=== PATIENT | female | born 1970 | race Caucasian/White ===

== ENCOUNTER 2020-11-16 10:29 | Observation (INO) | payer BC, SELFPAY ==
[2020-11-16] VITALS (9 sets, daily range): BP systolic 102–125; BP diastolic 59–75; PULSE 69–91; RESP 17–18; TEMP 36.7–37.1; O2SAT 96–100; BMI 36.0
--- NOTE | 2020-11-16 10:54 | ED_ITS ---
HPI - Headache General Chief Complaint: General Medical Stated Complaint: FLU [place]S Time Seen by Provider: 11/16/20 10:53 Source: patient Mode of arrival: ambulatory Limitations: no limitations History of Present Illness HPI Narrative: 50 yo female hx of hypothyroidism here with headache for almost 1 week gradual onset during rest - has worsened progressively she also notes diffuse body pain, fevers up to 101.3, just tested negative for COVID on 11/13 she was also started on fioricet with no relief, has been on macrobid for UTI unsure if headaches started after, also noted she syncopized on Friday due to weakness and headache MD elicited complaint: headache Onset (ago): day(s) (6) Onset description: gradually Location: diffuse Severity: severe Quality & Timing: aching and throbbing Exacerbating factors: light and noise Relieving factors: nothing Context: occurred at rest Associated symptoms: fever, nausea, photophobia and malaise Treatments prior to arrival: acetaminophen and prescription analgesic Related Data Allergies Allergy/AdvReac Type Severity Reaction Status Date / Time No Known Allergies Allergy Verified 11/16/20 11:06 Review of Systems Review of Systems: Constitutional : pos Fever, pos Chills, pos Fatigue ENT/Mouth : No sore throat, No Rhinorrhea Eyes: pos Eye Pain, No Swelling, No Redness Cardiovascular : No Chest Pain, No SOB, No Dyspnea on Exertion Respiratory : No Cough, No Sputum Gastrointestinal : pos Nausea, No Vomiting, No Diarrhea, No abdominal Pain Genitourinary : No Dysuria, No Urinary Frequency, No Hematuria, Musculoskeletal : No joint pain, pos Myalgias, No Joint Swelling Skin : No Skin Lesions, No rash Neuro : pos Weakness, No Numbness, No Dizziness, positive Headache Psych : No Anxiety/Panic, No Depression Heme/Lymph: No Bruising, No Bleeding,No Lymphadenopathy Endocrine : No Polyuria, No Polydipsia All other systems reviewed and are negative [facility] Past Medical History Attestation statement: The following information was validated with the patient. Medical History Hypothyroid Social History Social History (Updated 11/16/20 @ 11:25 by Lesia Monroy DO) Alcohol intake: never Smoking Status: Never smoker Use of substances other than those prescribed or required for medical reasons: No Advance Directives: No Advance Directives Information Provided: No Physical Exam Vital Signs: Vital Signs: Last Vital Signs Temp 98.1 F 11/16/20 15:58 Pulse 76 11/16/20 15:58 Resp 18 11/16/20 15:58 BP 109/59 L 11/16/20 15:58 Pulse Ox 99 11/16/20 15:58 Body Mass Index 36.0 Appearance: Alert. Oriented X3. No acute distress. Eyes: Pupils equal, round and reactive to light. ENT: Pharynx mild dry MMM, photophobia Neck: Normal inspection. Neck supple. no meningal signs, neg kernig's neg brudzinkski CVS: Normal heart rate and rhythm. Pulses normal. Respiratory: No respiratory distress. Breath sounds normal. Abdomen: Soft and nontender. Skin: Skin warm and dry. Normal skin color. Normal skin turgor. Extremities: No lower extremity edema. No calf ttp Neuro: Oriented X 3. No motor deficit. No sensory deficit. Course Course Course Narrative: headache resolved, of note was also taken off effexor, she is not toxic, she has no meningeal signs - was dizzy after medications, afebrile here, unlikely to be SAH given her history, I doubt bacterial meningitis, did discuss LP but she is unsure patient now c/o nausea and dizzines after medications, again discussed LP for possible viral meningitis though unlikely given 1 week of symptoms, at this time given her uncertainty and the fact she does not want LP will obtain CTA to r/o dissection as cause of her severe headache, signed out to Dr. Samayoa pending workup MDM - Headache MDM Narrative Medical decision making narrative: 50 yo female with hypothyroidism comes in c/o body aches, severe headache and overall feeling sick she did have syncopal episode as well but no CP/SOB at this time will need labs, CT head for mass/hemorrhage, IVF, IV morphine, repeat COVID swab, dispo per results and findings. Lab Data Result diagrams: 11/16/20 12:09 11/16/20 12:10 Labs: Lab Results 11/16/20 11/16/20 11/16/20 Range/Units 12:09 12:09 12:09 WBC 3.6 L (4.8-10.8) X10*3/uL RBC 4.76 (4.20-5.50) X10*6/uL Hgb 14.8 (12.0-16.0) g/dl Hct 44.5 (37-47) % MCV 93.5 (80-98) fL MCH 31.1 (27.0-33.0) pg MCHC 33.3 (31.0-35.0) g/dl RDW 12.1 (11.0-16.0) % Plt Count 189 (160-400) X10*3/uL MPV 10.1 (9.4-12.3) fL Immature Gran % (Auto) 0.6 H (0.0-0.4) % Neut % (Auto) 44.6 L (45-73) % Lymph % (Auto) 39.6 (20-40) % Woodson % (Auto) 11.0 (2-11) % Eos % (Auto) 2.5 (0-4) % Baso % (Auto) 1.7 (0-2) % Lymph # (Auto) 1.4 (1.2-4.9) X10*3/uL Woodson # (Auto) 0.4 (0.1-1.2) X10*3/uL Eos # (Auto) 0.1 (0.0-0.4) X10*3/uL Baso # (Auto) 0.1 (0.0-0.2) X10*3/uL Abs Immat Gran (auto) 0.02 (0.00-0.03) X10*3/uL Absolute Neuts (auto) 1.6 L (2.0-8.3) X10*3/uL Absolute Nucleated RBC 0.000 (0.0-0.012) X10*3/uL Nucleated RBC % (auto) 0.0 (0.0-0.2) /100WBC PT (10.8-13.0) SEC INR (0.9-1.1) APTT (24.1-38.0) SEC Sodium (135-145) mmol/L Potassium (3.3-5.1) mmol/l Chloride (96-108) mmol/L Carbon Dioxide (22-29) mmol/L Anion Gap (12-20) BUN (9-16) mg/dL Creatinine (0.5-1.4) mg/dL Estim Creat Clear Calc Estimated GFR Random Glucose (60-115) mg/dL Lactic Acid 0.8 (0.5-2.0) mmol/L Calcium (8.4-10.2) mg/dL Magnesium 2.2 (1.6-2.6) mg/dL Ferritin 220 (10-250) ng/mL Total Bilirubin 0.8 (0.0-1.0) mg/dL Direct Bilirubin 0.3 (0.0-0.5) mg/dL AST 12 (5-31) U/L ALT 11 (0-31) U/L Alkaline Phosphatase 53 (39-117) U/L Lactate Dehydrogenase (122-220) U/L Total Creatine Kinase 51 (26-140) U/L Troponin I High Sens (<3.5-17.0) ng/L Total Protein 6.3 L (6.5-8.0) g/dL Albumin 4.0 (3.5-5.0) g/dL Lipase 22 (8-78) U/L Coronavirus (PCR) (Negative) Influenza Type A (PCR) (Negative) Influenza Type B (PCR) (Negative) RSV RNA Qual (PCR) (Negative) 11/16/20 11/16/20 11/16/20 Range/Units 12:09 12:09 12:09 WBC (4.8-10.8) X10*3/uL RBC (4.20-5.50) X10*6/uL Hgb (12.0-16.0) g/dl Hct (37-47) % MCV (80-98) fL MCH (27.0-33.0) pg MCHC (31.0-35.0) g/dl RDW (11.0-16.0) % Plt Count (160-400) X10*3/uL MPV (9.4-12.3) fL Immature Gran % (Auto) (0.0-0.4) % Neut % (Auto) (45-73) % Lymph % (Auto) (20-40) % Woodson % (Auto) (2-11) % Eos % (Auto) (0-4) % Baso % (Auto) (0-2) % Lymph # (Auto) (1.2-4.9) X10*3/uL [place] # (Auto) (0.1-1.2) X10*3/uL Eos # (Auto) (0.0-0.4) X10*3/uL Baso # (Auto) (0.0-0.2) X10*3/uL Abs Immat Gran (auto) (0.00-0.03) X10*3/uL Absolute Neuts (auto) (2.0-8.3) X10*3/uL Absolute Nucleated RBC (0.0-0.012) X10*3/uL Nucleated RBC % (auto) (0.0-0.2) /100WBC PT 12.9 (10.8-13.0) SEC INR 1.1 (0.9-1.1) APTT 35.1 (24.1-38.0) SEC Sodium (135-145) mmol/L Potassium (3.3-5.1) mmol/l Chloride (96-108) mmol/L Carbon Dioxide (22-29) mmol/L Anion Gap (12-20) BUN (9-16) mg/dL Creatinine (0.5-1.4) mg/dL Estim Creat Clear Calc Estimated GFR Random Glucose (60-115) mg/dL Lactic Acid (0.5-2.0) mmol/L Calcium (8.4-10.2) mg/dL Magnesium (1.6-2.6) mg/dL Ferritin (10-250) ng/mL Total Bilirubin (0.0-1.0) mg/dL Direct Bilirubin (0.0-0.5) mg/dL AST (5-31) U/L ALT (0-31) U/L Alkaline Phosphatase (39-117) U/L Lactate Dehydrogenase (122-220) U/L Total Creatine Kinase (26-140) U/L Troponin I High Sens < 3.5 (<3.5-17.0) ng/L Total Protein (6.5-8.0) g/dL Albumin (3.5-5.0) g/dL Lipase (8-78) U/L Coronavirus (PCR) NEGATIVE (Negative) Influenza Type A (PCR) NEGATIVE (Negative) Influenza Type B (PCR) NEGATIVE (Negative) RSV RNA Qual (PCR) NEGATIVE (Negative) 11/16/20 Range/Units 12:10 WBC (4.8-10.8) X10*3/uL RBC (4.20-5.50) X10*6/uL Hgb (12.0-16.0) g/dl Hct (37-47) % MCV (80-98) fL MCH (27.0-33.0) pg MCHC (31.0-35.0) g/dl RDW (11.0-16.0) % Plt Count (160-400) X10*3/uL MPV (9.4-12.3) fL Immature Gran % (Auto) (0.0-0.4) % Neut % (Auto) (45-73) % Lymph % (Auto) (20-40) % Woodson % (Auto) (2-11) % Eos % (Auto) (0-4) % Baso % (Auto) (0-2) % Lymph # (Auto) (1.2-4.9) X10*3/uL [place]son # (Auto) (0.1-1.2) X10*3/uL Eos # (Auto) (0.0-0.4) X10*3/uL Baso # (Auto) (0.0-0.2) X10*3/uL Abs Immat Gran (auto) (0.00-0.03) X10*3/uL Absolute Neuts (auto) (2.0-8.3) X10*3/uL Absolute Nucleated RBC (0.0-0.012) X10*3/uL Nucleated RBC % (auto) (0.0-0.2) /100WBC PT (10.8-13.0) SEC INR (0.9-1.1) APTT (24.1-38.0) SEC Sodium 139 (135-145) mmol/L Potassium 4.1 (3.3-5.1) mmol/l Chloride 105 (96-108) mmol/L Carbon Dioxide 25 (22-29) mmol/L Anion Gap 13 (12-20) BUN 24 H (9-16) mg/dL Creatinine 0.93 (0.5-1.4) mg/dL Estim Creat Clear Calc 81.9 Estimated GFR > 60 Random Glucose 85 (60-115) mg/dL Lactic Acid (0.5-2.0) mmol/L Calcium 9.0 (8.4-10.2) mg/dL Magnesium (1.6-2.6) mg/dL Ferritin (10-250) ng/mL Total Bilirubin (0.0-1.0) mg/dL Direct Bilirubin (0.0-0.5) mg/dL AST (5-31) U/L ALT (0-31) U/L Alkaline Phosphatase (39-117) U/L Lactate Dehydrogenase 142 (122-220) U/L Total Creatine Kinase (26-140) U/L Troponin I High Sens (<3.5-17.0) ng/L Total Protein (6.5-8.0) g/dL Albumin (3.5-5.0) g/dL Lipase (8-78) U/L Coronavirus (PCR) (Negative) Influenza Type A (PCR) (Negative) Influenza Type B (PCR) (Negative) RSV RNA Qual (PCR) (Negative) ECG Data Attestation: I personally reviewed and interpreted this ECG as follows: ECG interpretation date: 11/16/20 ECG interpretation time: 11:52 Interpretation: Rate: 71 Rhythm: NSR Mcdonald: normal Normal P waves. Normal HARINDER. Normal QRS complex. ST T wave : normal no KIKA qTC: normal prior studies: no acute ischemia The study has been interpreted contemporaneously by me. . Discharge Plan Discharge Clinical Impression: Headache Qualifiers: Headache type: unspecified Headache chronicity pattern: acute headache Intractability: not intractable Qualified Code(s): R51.9 - Headache, unspecified Nausea & vomiting Qualifiers: Vomiting type: unspecified Vomiting Intractability: non-intractable Qualified Code(s): R11.2 - Nausea with vomiting, unspecified
--- NOTE | 2020-11-16 11:07 | ECG_ITS ---
Test Reason : SOB Blood Pressure : / mmHG Vent. Rate : 071 BPM Atrial Rate : 071 BPM P-R Int : 144 ms QRS Dur : 076 ms QT Int : 376 ms P-R-T Axes : 022 024 013 degrees QTc Int : 408 ms Normal sinus rhythm Normal ECG No previous ECGs available Referred By: Lesia Monroy Electronically Signed By:Renzo Santacruz
--- NOTE | 2020-11-16 11:07 | CT_ITS ---
EXAMINATION: CT HEAD WITHOUT CONTRAST CLINICAL INFORMATION: Severe headache COMPARISON: None. TECHNIQUE: Contiguous axial imaging was performed from the skull base to vertex without intravenous contrast. This CT examination was performed using dose optimization techniques as appropriate, variously including the following: * Automated exposure control * Adjustment of mA and/or kV according to patient size (this includes techniques or standardized protocols for targeted exams where dose is matched to indication/reason for exam; i.e. extremities or head) Use of iterative reconstruction technique DLP: 687 mGy-cm. FINDINGS: There is no evidence of acute intracranial hemorrhage or territorial infarction. No abnormal mass effect or midline shift is seen. Guerra to white matter differentiation is well preserved. No extra-axial fluid collections are identified. No hydrocephalus. No significant volume loss. There is no abnormal attenuation within the brain parenchyma. The osseous structures and soft tissues are normal. Small mucus retention cyst in the right ethmoid air cell posteriorly. The mastoid air cells and visualized portions of the paranasal sinuses are otherwise well aerated. CT/CT head/brain wo con IMPRESSION: No acute intracranial pathology.
--- NOTE | 2020-11-16 11:08 | XR_ITS ---
EXAMINATION: XR CHEST CLINICAL INFORMATION: Weakness COMPARISON: None TECHNIQUE: Frontal view of the chest was obtained. FINDINGS: The lungs are well expanded. There is no focal consolidation, edema, or effusion. No pneumothorax. The cardiomediastinal silhouette is within normal limits. No acute osseous abnormality. XR/XR chest 1V IMPRESSION: No acute pulmonary findings.
--- NOTE | 2020-11-16 12:15 | PC.NURSE ---
inserted, labs drawn, covid swab obtained, pt aware she needs to provide urine, will continue to monitor
[2020-11-16] MEDS: 0.9 % Sodium Chloride 1,000 ML 999 ML IVCONT ×3 (12:31→16:25)
[2020-11-16] MEDS: Morphine Sulfate 4 MG/ML CARTRIDGE IVPUSH (12:31)
[2020-11-16] MEDS: diphenhydrAMINE HCL 50 MG/ML VIAL 25 MG IVPUSH (12:31)
[2020-11-16 12:32] LABS: MANUAL DIFF FLAG NO
[2020-11-16 12:37] LABS: Basophils Absolute Auto 0.1 X10*3/uL (0.0-0.2); Basophils Percent Auto 1.7 % (0-2); Eosinophils Absolute Auto 0.1 X10*3/uL (0.0-0.4); Eosinophils Percent Auto 2.5 % (0-4); Hematocrit 44.5 % (37-47); Hemoglobin 14.8 g/dl (12.0-16.0); Imm Gran Abs Auto 0.02 X10*3/uL (0.00-0.03); Imm Gran Pct Auto 0.6 % (0.0-0.4); Lymphocytes Absolute Auto 1.4 X10*3/uL (1.2-4.9); Lymphocytes Percent Auto 39.6 % (20-40); Mean Corpuscular HGB Conc 33.3 g/dl (31.0-35.0); Mean Corpuscular Hemoglobin 31.1 pg (27.0-33.0); Mean Corpuscular Volume 93.5 fL (80-98); Mean Platelet Volume 10.1 fL (9.4-12.3); Monocytes Absolute Auto 0.4 X10*3/uL (0.1-1.2); Neutrophils Absolute Auto 1.6 X10*3/uL (2.0-8.3); Neutrophils Percent Auto 44.6 % (45-73); Platelet Count 189 X10*3/uL (160-400); Red Blood Count 4.76 X10*6/uL (4.20-5.50); Red Cell Distribution Width 12.1 % (11.0-16.0); White Blood Count 3.6 X10*3/uL (4.8-10.8)
[2020-11-16 12:43] LABS: INTERNATIONAL NORM RATIO 1.1 (0.9-1.1); Prothrombin Time 12.9 SEC (10.8-13.0)
[2020-11-16 12:45] LABS: Partial Thromboplastin Time 35.1 SEC (24.1-38.0)
--- NOTE | 2020-11-16 12:46 | PC.NURSE ---
patient medicated per order
[2020-11-16 12:58] LABS: Lactic Acid 0.8 mmol/L (0.5-2.0)
[2020-11-16 13:02] LABS: Influenza A PCR NEGATIVE (Negative); Influenza B PCR NEGATIVE (Negative); Resp Syncy Virus RNA Qual PCR NEGATIVE (Negative); SARS COV2 PCR INHOUSE NEGATIVE (Negative)
[2020-11-16 13:04] LABS: Anion Gap 13 (12-20); Blood Urea Nitrogen 24 mg/dL (9-16); Carbon Dioxide 25 mmol/L (22-29); Chloride 105 mmol/L (96-108); Creatinine Clr Calc Pharmacy 81.9; Estimated Glomerular Filt Rate > 60; Glucose Random 85 mg/dL (60-115); Lactate Dehydrogenase 142 U/L (122-220); Potassium 4.1 mmol/l (3.3-5.1); Sodium 139 mmol/L (135-145)
[2020-11-16 13:05] LABS: Alanine Aminotransferase 11 U/L (0-31); Alkaline Phosphatase 53 U/L (39-117); Aspartate Amino Transferase 12 U/L (5-31); Bilirubin Direct 0.3 mg/dL (0.0-0.5); Bilirubin Total 0.8 mg/dL (0.0-1.0); Lipase 22 U/L (8-78); Magnesium 2.2 mg/dL (1.6-2.6); Total Protein 6.3 g/dL (6.5-8.0)
[2020-11-16 13:07] LABS: Troponin-I High Sensitivity < 3.5 ng/L (<3.5-17.0)
[2020-11-16 13:25] LABS: Ferritin 220 ng/mL (10-250)
--- NOTE | 2020-11-16 13:51 | PC.NURSE ---
patient ambulated with this nurse, upon ambulating patient grabbed ahold of this nurse stating she was dizzy and felt as if she was falling, patient was helped back to her stretcher, patients ortho-stats were performed, provider notified, will continue to monitor.
--- NOTE | 2020-11-16 14:06 | PC.NURSE ---
ivf hung per order
--- NOTE | 2020-11-16 15:52 | PC.NURSE ---
patient states that her headache has increased again and she is very dizzy laying in bed and anytime she moves her head the dizziness worsens
--- NOTE | 2020-11-16 16:20 | CT_ITS ---
EXAMINATION: CTA OF THE HEAD AND NECK CLINICAL INFORMATION: Severe headache. COMPARISON: Head CT from earlier in the same day on 11/16/2020. TECHNIQUE: Test bolus sequences followed by intravenous administration 70 mL of Omnipaque 350. Helical imaging was performed in the axial plane from the mediastinum to the skull vertex. Delayed postcontrast imaging of the head was also performed. The data was processed at the electroencephalographic technologist's workstation for generation of MIP sequences. Three-dimensional volume rendered reformatted images were also generated at an offline 3-D workstation. Stenoses are assessed in accordance with NASCET criteria unless otherwise indicated. This CT examination was performed using dose optimization techniques as appropriate, variously including the following: *Automated exposure control *Adjustment of mA and/or kV according to patient size (this includes techniques or standardized protocols for targeted exams where dose is matched to indication/reason for exam; i.e. extremities or head) *Use of iterative reconstruction technique DLP: 1505 mGy-cm. FINDINGS: CTA neck: The imaged aortic arch and origins of the great vessels are normal. The common carotid arteries are widely patent. The carotid bifurcations are normal. The cervical internal carotid arteries are normal. The vertebral arteries opacify normally and are of normal caliber. The thyroid gland is mildly heterogeneous in attenuation with an exophytic 1.5 cm nodule arising from the isthmic portion. The remaining soft tissues of the neck are unremarkable. Reversal of the normal cervical lordosis. Mild subsegmental atelectatic changes noted in the lungs. CTA head: The intradural vertebral arteries and basilar artery are normal. The posterior cerebral arteries are widely patent. The internal carotid arteries are of normal caliber. The LESLIE and MCA vascular complexes bilaterally are normal. The venous sinuses opacify normally. There is no abnormal parenchymal or leptomeningeal enhancement. CT/CT angio head neck IMPRESSION: Normal CT angiogram of the head and neck. Incidental 1.5 cm nodule arising from the isthmic portion of the thyroid gland. Imaging findings reported to Dr. Samayoa at 6:25 PM on 11/16/2020.
[2020-11-16] MEDS: LORazepam 2 MG/ML VIAL 0.5 MG IVPUSH (16:25)
[2020-11-16] MEDS: ondansetron HCL 4 MG/2 ML VIAL IVPUSH (16:25)
--- NOTE | 2020-11-16 16:27 | PC.NURSE ---
pt medicated per order
[2020-11-16] MEDS: iohexoL 350 MG/ML 100 ML INFUS..BTL IV (17:34)
--- NOTE | 2020-11-16 18:41 | PC.NURSE ---
patient tearful as she is still very dizzy, pt ambulated with assist to the bathroom- very unsteady gait, urine obtained, will continue to monitor.
[2020-11-16 18:55] LABS: Glucose Urine UA NEG (NEG); Leukocyte Esterase Urine NEG (NEG); Nitrite Urine NEG (NEG); PH 5.5 (5.0-8.0); Urine Blood TRACE (NEG); Urine Ketones NEG (NEG); Urine Protein NEG (NEG-TRACE)
[2020-11-16 18:57] LABS: Appearance Urine CLEAR; Color Urine YELLOW
[2020-11-16 19:20] LABS: Bacteria Urine 1+ /LPF; Mucus Urine 1+ /LPF; RBC Urine 0-2 /HPF (0); Squamous Epithelial Cell Urine TRACE /LPF; WBC Urine 0-2 /HPF (0-4)
[2020-11-16] MEDS: Meclizine HCl 25 MG TABLET 50 MG PO (19:34)
--- NOTE | 2020-11-16 20:19 | PC.NURSE ---
patient was medicated per order, pt c/o continued headache and dizziness, vitals remain stable, will continue to monitor.
--- NOTE | 2020-11-16 22:18 | P.HPHOSP_ITS ---
History of Present Illness Date of Service: 11/16/20 Chief Complaint: Dizziness 50 y/o female with PMhx of Hypothyroidism and UTI who presented from home due to persistent dizziness/headaches per 1 week. Per history provided by the patient, symptoms started last friday and has been present since then, reports feeling dizzy which is associated with feeling things moving around her , symptoms worse with ambulation and when moving her head to the sides. She reported to the ED that last friday had an episode of syncope but circumstances at not clear . Patient also states that has been having on and off episodes of headaches for what is taking fioricet for the past 3 days and usually this symptom comes when looking at computer screens after working for a prolong time or looking at her phone. Patient denies any chest pain, SOB, nausea, vomiting. Reported having an episode of fever at home but patient was been treated for UTI with macrobid. At present there is no evidence of fever. Upon arrival to the ED vitals are found to be stable, mild leukopenia is identified of 3.6 otherwise bloodwork is WNL. CT head and neck normal and CT showing no evidence of any acute intracranial pathology. Incidental finding of thyroid nodule on CT of 1.5 cm. Patient was treated with meclizine, benadryl, ativan and anti-emetic without relieve on patient symptoms and given patient cannot ambulate due to severe dizz iness, decision for admission wax given. Patient was seen and examined at the bedside, laying down in bed in no acute distress. Reports ongoing dizziness which is worse when standing, moving her hea d or ambulating but stable at rest. Denies any headaches at present. No evidence of any neurologic deficit at present. PMHX: Hypothyroidism, UTI PSX: none Toxic habits: No hx of alcohol abuse, smoking or IVDA Review of Systems Constitutional: Constitutional: Reports as per HPI and Reports other (dizziness, hedaches) [facility] Medical History (Updated 11/16/20 @ 22:28 by Darline Cardenas MD) Hypothyroid Functional capacity: independent ambulation Social History Alcohol intake: never Smoking Status: Never smoker Use of substances other than those prescribed or required for medical reasons: No Advance Directives: No Advance Directives Information Provided: No Meds Allergies Allergy/AdvReac Type Severity Reaction Status Date / Time No Known Allergies Allergy Verified 11/16/20 11:06 Home Medications Medication Instructions Recorded Confirmed Type denaxazwqd-thgdtwvfxzckf-fbjt 1 cap PO Q4H PRN 11/16/20 11/16/20 History levothyroxine [Synthroid] 1 tab PO DAILY 11/16/20 11/16/20 History nitrofurantoin monohyd/m-cryst 1 cap PO BID 11/16/20 11/16/20 History Physical Exam Vital Signs and Narrative: Vital Signs: Last Vital Signs Temp 98.8 F 11/16/20 22:14 Pulse 91 11/16/20 22:14 Resp 18 11/16/20 22:14 BP 102/62 11/16/20 22:14 Pulse Ox 99 11/16/20 22:14 Body Mass Index 36.0 Const: General: cooperative, comfortable and no acute distress Orientation/consciousness: oriented to person, oriented to place and oriented to time HENMT: Head: Yes normal to inspection Eyes: General: appearance normal, both eyes and all related structures Neck: Yes normal visual inspection Chest: Chest palpation & inspection: normal inspection of the chest Resp: Effort & Inspection: normal respiratory effort Auscultation: clear to auscultation bilaterally Cardio: Jugular venous distension: no JVD Rate: regular rate Rhythm: regular rhythm Heart sounds: S1 normal heart sound present and S2 normal heart sound present GI: Inspection: Yes normal to inspection Neuro: General: oriented to person, oriented to place and oriented to time Cognition (Neuro): normal cognition Extrem: General: Yes normal to inspection Psych: Appearance: grossly normal Results Labs CBC and Chem 7: 11/16/20 12:09 11/16/20 12:10 Labs: Laboratory Results - last 24 hr 11/16/20 11/16/20 11/16/20 12:09 12:09 12:09 MCV 93.5 MCH 31.1 MCHC 33.3 RDW 12.1 Plt Count 189 MPV 10.1 Immature Gran % (Auto) 0.6 H Neut % (Auto) 44.6 L Lymph % (Auto) 39.6 [place] % (Auto) 11.0 Eos % (Auto) 2.5 Baso % (Auto) 1.7 Lymph # (Auto) 1.4 [place] # (Auto) 0.4 Eos # (Auto) 0.1 Baso # (Auto) 0.1 Abs Immat Gran (auto) 0.02 Absolute Neuts (auto) 1.6 L Absolute Nucleated RBC 0.000 Nucleated RBC % (auto) 0.0 PT INR APTT Anion Gap Estim Creat Clear Calc Estimated GFR Random Glucose Lactic Acid 0.8 Calcium Magnesium 2.2 Ferritin 220 Total Bilirubin 0.8 Direct Bilirubin 0.3 AST 12 ALT 11 Alkaline Phosphatase 53 Lactate Dehydrogenase Total Creatine Kinase 51 Troponin I High Sens Total Protein 6.3 L Albumin 4.0 Lipase 22 Urine Color Urine Appearance Urine pH Ur Specific [place] Urine Protein Urine Glucose (UA) Urine Ketones Urine Blood Urine Nitrite Ur Leukocyte Esterase Urine RBC Urine WBC Ur Squamous Epith Cells Urine Bacteria Urine Mucus Coronavirus (PCR) Influenza Type A (PCR) Influenza Type B (PCR) RSV RNA Qual (PCR) 11/16/20 11/16/20 11/16/20 12:09 12:09 12:09 MCV MCH MCHC RDW Plt Count MPV Immature Gran % (Auto) Neut % (Auto) Lymph % (Auto) [place] % (Auto) Eos % (Auto) Baso % (Auto) Lymph # (Auto) [place] # (Auto) Eos # (Auto) Baso # (Auto) Abs Immat Gran (auto) Absolute Neuts (auto) Absolute Nucleated RBC Nucleated RBC % (auto) PT 12.9 INR 1.1 APTT 35.1 Anion Gap Estim Creat Clear Calc Estimated GFR Random Glucose Lactic Acid Calcium Magnesium Ferritin Total Bilirubin Direct Bilirubin AST ALT Alkaline Phosphatase Lactate Dehydrogenase Total Creatine Kinase Troponin I High Sens < 3.5 Total Protein Albumin Lipase Urine Color Urine Appearance Urine pH Ur Specific [place] Urine Protein Urine Glucose (UA) Urine Ketones Urine Blood Urine Nitrite Ur Leukocyte Esterase Urine RBC Urine WBC Ur Squamous Epith Cells Urine Bacteria Urine Mucus Coronavirus (PCR) NEGATIVE Influenza Type A (PCR) NEGATIVE Influenza Type B (PCR) NEGATIVE RSV RNA Qual (PCR) NEGATIVE 11/16/20 11/16/20 12:10 18:42 MCV MCH MCHC RDW Plt Count MPV Immature Gran % (Auto) Neut % (Auto) Lymph % (Auto) [place] % (Auto) Eos % (Auto) Baso % (Auto) Lymph # (Auto) [place] # (Auto) Eos # (Auto) Baso # (Auto) Abs Immat Gran (auto) Absolute Neuts (auto) Absolute Nucleated RBC Nucleated RBC % (auto) PT INR APTT Anion Gap 13 Estim Creat Clear Calc 81.9 Estimated GFR > 60 Random Glucose 85 Lactic Acid Calcium 9.0 Magnesium Ferritin Total Bilirubin Direct Bilirubin AST ALT Alkaline Phosphatase Lactate Dehydrogenase 142 Total Creatine Kinase Troponin I High Sens Total Protein Albumin Lipase Urine Color YELLOW Urine Appearance CLEAR Urine pH 5.5 Ur Specific [place] 1.010 Urine Protein NEG Urine Glucose (UA) NEG Urine Ketones NEG Urine Blood TRACE Urine Nitrite NEG Ur Leukocyte Esterase NEG Urine RBC 0-2 Urine WBC 0-2 Ur Squamous Epith Cells TRACE Urine Bacteria 1+ Urine Mucus 1+ Coronavirus (PCR) Influenza Type A (PCR) Influenza Type B (PCR) RSV RNA Qual (PCR) Imaging Radiologist's Impressions: Impressions Head CT 11/16/20 11:07 IMPRESSION: No acute intracranial pathology. Chest X-Ray 11/16/20 11:08 IMPRESSION: No acute pulmonary findings. Head/Neck CTA 11/16/20 16:20 IMPRESSION: Normal CT angiogram of the head and neck. Incidental 1.5 cm nodule arising from the isthmic portion of the thyroid gland. Imaging findings reported to Dr. Samayoa at 6:25 PM on 11/16/2020. Assessment and Plan (1) Dizziness: Status: Acute Dizziness likely secondary to BPPV. R/o posterior circulation stroke Observation MRI to be done in the am if neurology is agreeable Continue with meclizine PRN for dizziness Neurology consult in the am (2) Headache: Qualifiers: Headache chronicity pattern: acute headache Headache type: unspecified Intractability: not intractable Qualified Code(s): R51.9 - Headache, un specified Status: Acute likely secondary to migraine Tylenol PRN if needed (3) Hypothyroid: Status: Acute Continue with levothyroxine home dose Incidental thyroid nodule. Thyroid US to be considered.
--- NOTE | 2020-11-17 | MR_ITS ---
MRI OF THE BRAIN WITHOUT IV CONTRAST INDICATION: Dizziness. Rule out stroke. COMPARISON: CTA head and neck and head CT November 16, 2020. TECHNIQUE: Multiplanar multisequence MR imaging of the brain was obtained without IV contrast. FINDINGS: There is no hydrocephalus, extra-axial surface collection, or herniation. The major flow voids at the skull base are preserved. There is no acute infarct on diffusion-weighted imaging. There is no intracranial hemorrhage on the gradient recalled echo acquisition. There is an incidental 4 mm pineal gland cyst without mass effect. The cerebellar tonsils are normally positioned. The cerebellum and brainstem are normal. The craniocervical junction is normal. Osseous marrow signal intensity is homogenous. The visualized soft tissues are unremarkable. Retention cyst within a posterior right ethmoid air cell. MR/MR head/brain wo con IMPRESSION: Unremarkable noncontrast MRI of the brain. No acute infarcts.
[2020-11-17] MEDS: Enoxaparin Sodium 40 MG/0.4 ML SYRINGE SUBCUT (02:52)
[2020-11-17 03:42] VITALS: BP 99/60; PULSE 69; RESP 14; TEMP 36.9; O2SAT 97
--- NOTE | 2020-11-17 05:46 | PC.NURSE ---
PT RESTING IN BED EYES CLOSED SKIN PWD RESPIRATIONS EVEN UNLABORED. OFFERS NO COMPLAINTS. AWAITING BED ASSIGNMENT FOR OBSERVATION ADMISSION.
--- NOTE | 2020-11-17 06:00 | US_ITS ---
EXAMINATION: US THYROID CLINICAL INFORMATION: Thyroid nodule noted on CT anterior no head and neck 11/16/2020. COMPARISON: None TECHNIQUE: Linear transducer grayscale and color Doppler examination with attention to the region of the thyroid. FINDINGS: SIZE: The thyroid is small in size. Measurements of the thyroid lobes and nodules are given in sagittal, anteroposterior and transverse dimensions respectively. Right Thyroid Lobe: 3.2 x 1.3 x 1.0 cm, volume 2.1 mL. Parenchyma: The gland echotexture is heterogeneous. Thyroid vascularity is normal. Left Thyroid Lobe: 3.1 x 0.8 x 1.0 cm, volume 1.3 mL. Parenchyma: The gland echotexture is heterogeneous. Thyroid vascularity is normal. Isthmus: 1.0 cm in maximum AP dimension. Estimated total number of nodules greater than or equal to 1 cm: 2. Senior [employer] nodules are described as follows: 1. Location: Low isthmus. Size: 1.6 x 0.6 x 1.4 cm, volume 0.70 mL. Nodule characteristics: Composition: Solid (2). Echogenicity: Isoechoic (1). Shape: Not taller than wide (0). Margins: Smooth (0). Echogenic Foci: None (0). ACR TI-RADS total points: 3 ACR TI-RADS category: 3 2. Location: Right inferior. Size: 1.0 x 0.7 x 0.7 cm, volume 0.26 mL. Nodule characteristics: Composition: Solid (2). Echogenicity: Isoechoic (1). Shape: Not taller than wide (0). Margins: Smooth (0). Echogenic Foci: None (0). ACR TI-RADS total points: 3 ACR TI-RADS category: 3 NODES: No lymphadenopathy is seen in the tissue surrounding the thyroid gland. US/US thyroid IMPRESSION: 1. Small thyroid, each lobe under 3 mL. 2. Two TI-RADS category 3 nodules, 1.6 cm isthmus, and 1.0 cm right lobe. 3. Recommend follow-up in one year. ACR TI-RADS RECOMMENDATIONS: Ultrasound-guided fine-needle aspiration, followup ultrasound, no further follow up. TR3 (3 points): FNA if more than or equal to 2.5 cm in maximum dimension; follow up in 1, 3 and 5 years if 1.5 to 2.4 cm in maximum dimension.
[2020-11-17 06:51] LABS: MANUAL DIFF FLAG NO
[2020-11-17 06:58] LABS: Basophils Absolute Auto 0.1 X10*3/uL (0.0-0.2); Basophils Percent Auto 1.8 % (0-2); Eosinophils Absolute Auto 0.1 X10*3/uL (0.0-0.4); Hematocrit 40.7 % (37-47); Hemoglobin 13.5 g/dl (12.0-16.0); Lymphocytes Absolute Auto 1.6 X10*3/uL (1.2-4.9); Lymphocytes Percent Auto 47.4 % (20-40); Mean Corpuscular HGB Conc 33.2 g/dl (31.0-35.0); Mean Corpuscular Hemoglobin 31.3 pg (27.0-33.0); Mean Corpuscular Volume 94.2 fL (80-98); Monocytes Absolute Auto 0.4 X10*3/uL (0.1-1.2); Monocytes Percent Auto 11.2 % (2-11); Neutrophils Absolute Auto 1.2 X10*3/uL (2.0-8.3); Neutrophils Percent Auto 36.6 % (45-73); Platelet Count 167 X10*3/uL (160-400); Red Blood Count 4.32 X10*6/uL (4.20-5.50); Red Cell Distribution Width 12.1 % (11.0-16.0); White Blood Count 3.3 X10*3/uL (4.8-10.8)
[2020-11-17 07:32] LABS: Anion Gap 12 (12-20); Blood Urea Nitrogen 14 mg/dL (9-16); Carbon Dioxide 19 mmol/L (22-29); Chloride 111 mmol/L (96-108); Creatinine Clr Calc Pharmacy 101.6; Estimated Glomerular Filt Rate > 60; Glucose Random 81 mg/dL (60-115); Potassium 4.4 mmol/l (3.3-5.1); Sodium 138 mmol/L (135-145)
[2020-11-17 07:45] LABS: Thyroid Stimulating Hormone 2.55 uIU/mL (0.32-4.0)
[2020-11-17 08:08] LABS: Calcium 8.1 mg/dL (8.4-10.2)
[2020-11-17] MEDS: 0.9 % Sodium Chloride Flush 3 ML SYRINGE IVFLUSH ×2 (10:34→18:00)
[2020-11-17] MEDS: Levothyroxine Sodium 125 MCG TABLET PO (10:34)
--- NOTE | 2020-11-17 10:35 | PC.NURSE ---
Levothyroxine given late as I had to wait for the pharmacy to bring to ED.
[2020-11-17 10:39] VITALS: BP 117/69; PULSE 79; RESP 18; O2SAT 96
--- NOTE | 2020-11-17 11:06 | MHC.CM.PN ---
Met with patient in regards to discharge planning. Patient lives with her fiance, ambulates independently and had no services prior to coming to the hospital. Services not anticipated to be needed at discharge because patient is not homebound. PCP verified. Obs notice explained and signed. Patient's family will transport her home when medically stable. Continue to monitor for d/c needs.
[2020-11-17 14:23] VITALS: BP 123/71; PULSE 90; RESP 18; O2SAT 97
[2020-11-17] MEDS: Meclizine HCl 25 MG TABLET PO (14:26)
--- NOTE | 2020-11-17 14:46 | PM.NEUROCN ---
History of Present Illness Data of Consult Service Date: 11/17/20 Primary Care Provider: Denise Zimmer MD 50 years old woman with past medical history of migraine type of headaches was under stress because of couple of reasons. Her son with overdosing couple of years ago around this time and her dog a few days ago. The dog belonged to her son. She started having headache few days ago which was not going away and was associated with dizziness or sense of motion and shooting pain from right occipital area going to the head. She was somewhat nauseous. She denied having cold or flu-like illness or chills or fever. Recently she was treated for UTI. Review of Systems Review of Systems: No recent cold or flu-like illness or trauma. She was going through significant emotional stress. [facility] Past Medical History Medical History (Updated 11/17/20 @ 14:52 by Mehnaz Goff MD) Hypothyroid Functional capacity: independent ambulation Social History Social History Alcohol intake: current Alcohol intake frequency: holidays/special occasions only Smoking Status: Former smoker Smoked in Last 30 Days: No Use of substances other than those prescribed or required for medical reasons: No Advance Directives: No Advance Directives Information Provided: No service: No Current occupational status: employed Meds Allergies Allergy/AdvReac Type Severity Reaction Status Date / Time No Known Allergies Allergy Verified 11/16/20 11:06 Home Medications Medication Instructions Recorded Confirmed Type [id number]-ligiqkukbzpea-iack 1 cap PO Q4H PRN 11/16/20 11/16/20 History levothyroxine [Synthroid] 1 tab PO DAILY 11/16/20 11/16/20 History nitrofurantoin monohyd/m-cryst 1 cap PO BID 11/16/20 11/16/20 History Physical Exam Vital Signs: Vital Signs: Last Vital Signs Temp 98.5 F 11/17/20 03:42 Pulse 90 11/17/20 14:23 Resp 18 11/17/20 14:23 BP 123/71 11/17/20 14:23 Pulse Ox 97 11/17/20 14:23 Body Mass Index 36.0 She was alert awake with normal spontaneity of speech fluency comprehension and depressed and tearful affect. External ocular muscles were intact. Visual perez are full. Face was symmetrical. Tongue was midline. There was no pronator drift. Krsljh-kj-vtro testing was normal. Deep tendon reflexes were 2+ with flexor plantars. Meningeal signs were absent. Results Labs CBC & Chem 7: 11/17/20 06:31 11/17/20 06:32 Labs: Short CBC 11/17/20 Range/Units 06:31 WBC 3.3 L (4.8-10.8) X10*3/uL Hgb 13.5 (12.0-16.0) g/dl Hct 40.7 (37-47) % Plt Count 167 (160-400) X10*3/uL BMP 11/17/20 06:32 Sodium 138 Potassium 4.4 Chloride 111 H Carbon Dioxide 19 L BUN 14 Creatinine 0.75 Calcium 8.1 L D Urine 11/16/20 Range/Units 18:42 Urine Color YELLOW Urine Appearance CLEAR Urine pH 5.5 (5.0-8.0) Ur Specific [place] 1.010 (1.005-1.025) Urine Protein NEG (NEG-TRACE) MG/DL Urine Glucose (UA) NEG (NEG) MG/DL Her noncontrast head CT and MRI of brain were reviewed. No significant abnormality was noted. Her laboratories reveal mild leukocytopenia but otherwise no significant abnormality. Microbiology Microbiology Results: Microbiology 11/16/20 12:09 Blood - Arterial Blood Culture - Preliminary No growth after 24 hours. Assessment and Plan (1) Dizziness: Status: Acute (2) Status migrainosus: Status: Acute 50 years old woman going through significant stress related to her son's passing couple of years ago at this time of the year and her son's dogs passing few days ago. She had previous history of migraine type of headaches and was going through a prolonged intractable migraine, i.e., status migrainosus. She was also quite depressed. At this time my recommendation is to treat her conservatively. Headache was already better but dizziness was not and I would suggest starting her on metoclopramide 5-10 mg p.r.n. and using sumatriptan p.r.n. for headache. Other than that, sed rate is recommended
[2020-11-17 15:42] VITALS: BP 126/67; PULSE 84; RESP 18; O2SAT 98
--- NOTE | 2020-11-17 16:11 | HO.PM.IMPN ---
Subjective Subjective Date of Service: 11/17/20 Interval History: Patient seen and examined at bedside. patient was reporting dizziness Constitutional Constitutional: Reports as per HPI and Reports other (dizziness, hedaches) Physical Exam Vital Signs: Vital Signs: Last Vital Signs Temp 98.5 F 11/17/20 03:42 Pulse 84 11/17/20 15:42 Resp 18 11/17/20 15:42 BP 126/67 11/17/20 15:42 Pulse Ox 98 11/17/20 15:42 Body Mass Index 36.0 Const: General: cooperative, comfortable and no acute distress Orientation/consciousness: oriented to person, oriented to place and oriented to time HENMT: Head: Yes normal to inspection Eyes: General: appearance normal, both eyes and all related structures Neck: Neck: Yes normal visual inspection Chest: Chest palpation & inspection: normal inspection of the chest Resp: Effort & Inspection: normal respiratory effort Auscultation: clear to auscultation bilaterally Cardio: Jugular venous distension: no JVD Rate: regular rate Rhythm: regular rhythm Heart sounds: S1 normal heart sound present and S2 normal heart sound present GI: Inspection: Yes normal to inspection Neuro: General: oriented to person, oriented to place and oriented to time Cognition (Neuro): normal cognition Extrem: General: Yes normal to inspection Psych: Appearance: grossly normal Objective Data Current Medications Generic Name Dose Route Start Last Admin Trade Name Freq PRN Reason Stop Dose Admin Enoxaparin Sodium 40 mg 11/17/20 00:00 11/17/20 02:52 Enoxaparin Sodium 40 Mg/0.4 Ml Syringe SUBCUT 40 mg Q24H CRISTELA Administration Levothyroxine Sodium 125 mcg 11/17/20 09:00 11/17/20 10:34 Levothyroxine Sodium 125 Mcg Tablet PO 125 mcg DAILY CRISTELA Administration Meclizine HCl 25 mg 11/17/20 12:27 11/17/20 14:26 Meclizine Hcl 25 Mg Tablet PO 25 mg Q8H PRN Administration dizziness Pharmacy Consult 1 each 11/16/20 20:56 Consult Rx Perform Med Rec MISCELLANE ONCE PRN Consult order Sodium Chloride 3 ml 11/17/20 00:00 11/17/20 10:34 0.9 % Sodium Chloride Flush 3 Ml Syringe IVFLUSH 3 ml QSHIFT CRISTELA Administration Labs CBC & Chem 7: 11/17/20 06:31 11/17/20 06:32 Microbiology Microbiology Results: Microbiology 11/16/20 12:54 Blood - Arterial Blood Culture - Preliminary No growth after 24 hours. 11/16/20 12:09 Blood - Arterial Blood Culture - Preliminary No growth after 24 hours. Assessment and Plan (1) Dizziness: Status: Acute (2) Headache: Status: Acute (3) Hypothyroid: Status: Acute Assessment and Plan: Dizziness likely secondary to BPPV. R/o posterior circulation stroke MRI brain pending Continue with meclizine PRN for dizziness Neurology consult monitor closely Tylenol PRN if needed migraine headache continue Fioricet as needed recently diagnosed with UTI continue Macrobid Hypothyroidism Continue with levothyroxine Incidental thyroid nodule. Thyroid US as outpatient DVT prophylax Lovenox
[2020-11-17 17:14] LABS: Erythrocyte Sedimentation Rate 7 MM/HR (0-20)
--- NOTE | 2020-11-17 20:36 | PC.NURSE ---
CALLED TO GIVE REPORT. NURSE TO CALL BACK.
--- NOTE | 2020-11-17 20:47 | PC.NURSE ---
NURSE TO NURSE GIVEN TO JAKOB BONILLA. WAIT AT LEAST 30 MINUTES PRIOR TO SENDING.
--- NOTE | 2020-11-17 21:09 | PC.NURSE ---
1800: pt resting at this time. denies needs 2100: pt sleeping at this time. airway patent.
[2020-11-17 23:38] VITALS: BP 114/70; PULSE 70; RESP 16; TEMP 37.1; O2SAT 94
[2020-11-18] MEDS: Enoxaparin Sodium 40 MG/0.4 ML SYRINGE SUBCUT (00:18)
[2020-11-18] MEDS: 0.9 % Sodium Chloride Flush 3 ML SYRINGE IVFLUSH ×3 (00:24→16:01)
[2020-11-18] MEDS: Acetaminophen 325 MG TABLET 650 MG PO (00:49)
[2020-11-18 03:48] VITALS: BP 116/70; PULSE 73; RESP 18; TEMP 36.6; O2SAT 94
[2020-11-18 07:45] VITALS: BP 108/70; PULSE 71; RESP 16; TEMP 36.6; O2SAT 96
[2020-11-18] MEDS: Butalb/Acetamin/Caff 50/325/40 TABLET 1 TAB PO ×2 (09:51→16:07)
[2020-11-18] MEDS: Levothyroxine Sodium 125 MCG TABLET PO (09:51)
[2020-11-18] MEDS: Meclizine HCl 25 MG TABLET PO (11:25)
[2020-11-18 12:00] VITALS: BP 103/67; PULSE 78; RESP 16; TEMP 36.1; O2SAT 99
--- NOTE | 2020-11-18 15:23 | HO.PM.IMPN ---
Subjective Subjective Date of Service: 11/18/20 Interval History: Patient seen and examined at bedside. Patient was reporting dizziness and headache. Constitutional Constitutional: Reports as per HPI and Reports other (dizziness, hedaches) Physical Exam Vital Signs: Vital Signs: Last Vital Signs Temp 97 F 11/18/20 12:00 Pulse 78 11/18/20 12:00 Resp 16 11/18/20 12:00 BP 103/67 11/18/20 12:00 Pulse Ox 99 11/18/20 12:00 Body Mass Index 36.0 Const: General: cooperative, comfortable and no acute distress Orientation/consciousness: oriented to person, oriented to place and oriented to time HENMT: Head: Yes normal to inspection Eyes: General: appearance normal, both eyes and all related structures Neck: Neck: Yes normal visual inspection Chest: Chest palpation & inspection: normal inspection of the chest Resp: Effort & Inspection: normal respiratory effort Auscultation: clear to auscultation bilaterally Cardio: Jugular venous distension: no JVD Rate: regular rate Rhythm: regular rhythm Heart sounds: S1 normal heart sound present and S2 normal heart sound present GI: Inspection: Yes normal to inspection Neuro: General: oriented to person, oriented to place and oriented to time Cognition (Neuro): normal cognition Extrem: General: Yes normal to inspection Psych: Appearance: grossly normal Objective Data Current Medications Generic Name Dose Route Start Last Admin Trade Name Freq PRN Reason Stop Dose Admin Acetaminophen/Butalbital/Caffeine 1 tab 11/18/20 08:26 11/18/20 09:51 Butalb/Acetamin/Caff 50/325/40 Tablet PO 1 tab Q6H PRN Administration Headache Enoxaparin Sodium 40 mg 11/17/20 00:00 11/18/20 00:18 Enoxaparin Sodium 40 Mg/0.4 Ml Syringe SUBCUT 40 mg Q24H CRISTELA Administration Levothyroxine Sodium 125 mcg 11/17/20 09:00 11/18/20 09:51 Levothyroxine Sodium 125 Mcg Tablet PO 125 mcg DAILY CRISTELA Administration Meclizine HCl 25 mg 11/17/20 12:27 11/18/20 11:25 Meclizine Hcl 25 Mg Tablet PO 25 mg Q8H PRN Administration dizziness Metoclopramide HCl 5 mg 11/17/20 16:11 Metoclopramide Hcl 10 Mg/2 Ml Vial IVPUSH Q6H PRN Nausea and Vomiting Pharmacy Consult 1 each 11/16/20 20:56 Consult Rx Perform Med Rec MISCELLANE ONCE PRN Consult order Sodium Chloride 3 ml 11/17/20 00:00 11/18/20 09:53 0.9 % Sodium Chloride Flush 3 Ml Syringe IVFLUSH 3 ml QSHIFT CRISTELA Administration Labs CBC & Chem 7: 11/17/20 06:31 11/17/20 06:32 Microbiology Microbiology Results: Microbiology 11/16/20 12:54 Blood - Arterial Blood Culture - Preliminary No growth after 48 hours. 11/16/20 12:09 Blood - Arterial Blood Culture - Preliminary No growth after 48 hours. Assessment and Plan (1) Dizziness: Status: Acute (2) Headache: Status: Acute (3) Hypothyroid: Status: Acute Assessment and Plan: Dizziness likely secondary to BPPV. still reporting feeling dizzy MRI brain no acute abnormality no acute stroke Continue with meclizine PRN for dizziness Neurology consulted recommended likely secondary to migraine headache monitor closely Tylenol PRN if needed will get PT evaluation Miigraine headache continue Fioricet as needed Recently diagnosed with UTI continue Macrobid Hypothyroidism Continue with levothyroxine Incidental thyroid nodule. Thyroid US done recommended follow-up as outpatient DVT prophylax Lovenox likely discharge tomorrow if dizziness improved further
[2020-11-18 15:32] VITALS: BP 106/60; PULSE 77; RESP 16; TEMP 36.4; O2SAT 98
[2020-11-18 19:32] VITALS: BP 101/52; PULSE 76; RESP 18; TEMP 36.6; O2SAT 96
[2020-11-18 23:53] VITALS: BP 113/67; PULSE 73; RESP 18; TEMP 37.1; O2SAT 98
[2020-11-19] MEDS: LORazepam 2 MG/ML VIAL 1 MG IVPUSH (00:53)
[2020-11-19] MEDS: Enoxaparin Sodium 40 MG/0.4 ML SYRINGE SUBCUT (00:55)
[2020-11-19] MEDS: 0.9 % Sodium Chloride Flush 3 ML SYRINGE IVFLUSH ×2 (00:55→07:45)
[2020-11-19 04:00] VITALS: BP 125/69; PULSE 61; RESP 16; TEMP 36.6; O2SAT 99
[2020-11-19 07:45] VITALS: BP 106/72; PULSE 81; RESP 16; TEMP 36.1; O2SAT 98
[2020-11-19] MEDS: Levothyroxine Sodium 125 MCG TABLET PO (07:45)
--- NOTE | 2020-11-19 10:24 | P.CNNE_ITS ---
History of Present Illness Data of Consult Service Date: 11/19/20 Primary Care Provider: Denise Zimmer MD 50 years old woman with longstanding history of stress and anxiety and depress ion that was treated with citalopram for a long time and then for some reason switched to venlafaxine. She said that she had some side effects on venlafaxine in about 10 days ago she stopped taking it. She was also under significant stress related to her son's passing and then his dogs passing. She was admitted with headache and dizziness suggestive of status migrainosus. This morning she was feeling much better. [facility] Past Medical History Medical History (Updated 11/17/20 @ 14:52 by Mehnaz Goff MD) Hypothyroid Functional capacity: independent ambulation Social History Social History Household Members: Other Housing: House Do you presently have visiting nurse or other home services: No Unable to assess alcohol history related to: Unknown Alcohol intake: current Alcohol intake frequency: holidays/special occasions only Smoking Status: Former smoker Smoked in Last 30 Days: No Use of substances other than those prescribed or required for medical reasons: No Currently Displaying Signs/Symptoms of Drug Intoxication Withdrawal: No Advance Directives: No Advance Directives Information Provided: No Do you have thoughts of harming others: None Do you have a plan to hurt others: No Plan Recently lost weight without trying: No service: No Current occupational status: employed Meds Allergies Allergy/AdvReac Type Severity Reaction Status Date / Time No Known Allergies Allergy Verified 11/16/20 11:06 Home Medications Medication Instructions Recorded Confirmed Type [id number] 1 cap PO Q4H PRN 11/16/20 11/16/20 History levothyroxine [Synthroid] 1 tab PO DAILY 11/16/20 11/16/20 History nitrofurantoin monohyd/m-cryst 1 cap PO BID 11/16/20 11/16/20 History Physical Exam Vital Signs: Vital Signs: Last Vital Signs Temp 96.9 F 11/19/20 07:45 Pulse 81 11/19/20 07:45 Resp 16 11/19/20 07:45 BP 106/72 11/19/20 07:45 Pulse Ox 98 11/19/20 07:45 Body Mass Index 36.0 Alert and awake with normal spontaneity of speech fluency comprehension and affect. There was no sign of distress. Results Labs CBC & Chem 7: 11/17/20 06:31 11/17/20 06:32 Microbiology Microbiology Results: Microbiology 11/16/20 12:54 Blood - Arterial Blood Culture - Preliminary No growth after 48 hours. 11/16/20 12:09 Blood - Arterial Blood Culture - Preliminary No growth after 48 hours. Assessment and Plan (1) Status migrainosus: Status: Acute 50 years old woman with underlying history of migraine, this admission resulting from status migrainosus, which was triggered when she stopped taking venlafaxine and also stress related to her personal life. Now she was much better. At this time my recommendations are as follows: 1. Start her on ci talopram 10 mg daily, 2. Trazodone 50 mg 1 at night p.r.n. for insomnia, 3. Topiramate 25 mg 1 at night for migraine control, 4. Sumatriptan 50 mg 1 q.day p.r.n. for migraine
[2020-11-19 12:00] VITALS: RESP 16
--- NOTE | 2020-11-19 12:59 | MHC.CM.PN ---
PATIENT IS DISCHARGED HOME NO SERVICES RN AWARE OF PLAN.
[2020-11-19] MEDS: SUMAtriptan succinate 50 MG TABLET PO (13:09)
--- NOTE | 2020-11-19 18:26 | P.DS_ITS ---
DS: Providers Provider Date of Service: 11/25/20 Date of admission: 11/16/20 22:09 Primary care physician: Denise Zimmer MD Consults: 11/16/20 23:19 Consult to Neurology Routine Consulting Provider: [facility] Reason for consultation: Persistent dizziness, suspected BPPV. r/op posterior circulation infarct Has provider been notified: No DS: Diagnosis Discharge Diagnosis (1) Status migrainosus: Status: Acute DS: Medications Discharge Medications Home Medications: Home Medications Medication Instructions Recorded Confirmed [id number]-qmdyclageqyew-ochn 1 cap PO Q4H PRN 11/16/20 11/16/20 levothyroxine [Synthroid] 1 tab PO DAILY 11/16/20 11/16/20 Previous Rx's Medication Instructions Recorded sumatriptan succinate 50 mg PO DAILY PRN #20 tab 11/19/20 topiramate 25 mg PO BEDTIME #30 tab 11/19/20 trazodone 50 mg PO BEDTIME PRN #30 tab 11/19/20 DS: Summary Hospital Course Hospital Course: Chief Complaint: Dizziness 50 y/o female with PMhx of Hypothyroidism and UTI who presented from home due to persistent dizziness/headaches per 1 week. Per history provided by the patient, symptoms started last friday and has been present since then, reports feeling dizzy which is associated with feeling things moving around her , symptoms worse with ambulation and when moving her head to the sides. She reported to the ED that last friday had an episode of syncope but circumstances at not clear . Patient also states that has been having on and off episodes of headaches for what is taking fioricet for the past 3 days and usually this symptom comes when looking at computer screens after working for a prolong time or looking at her phone. Patient denies any chest pain, SOB, nausea, vomiting. Reported having an episode of fever at home but patient was been treated for UTI with macrobid. At present there is no evidence of fever. Upon arrival to the ED vitals are found to be stable, mild leukopenia is identified of 3.6 otherwise bloodwork is WNL. CT head and neck normal and CT showing no evidence of any acute intracranial pathology. Incidental finding of thyroid nodule on CT of 1.5 cm. Patient was treated with meclizine, benadryl, ativan and anti-emetic without relieve on patient symptoms and given patient cannot ambulate due to severe dizziness, decision for admission wax given. Patient was seen and examined at the bedside, laying down in bed in no acute distress. Reports ongoing dizziness which is worse when standing, moving her head or ambulating but stable at rest. Denies any headaches at present. No evidence of any neurologic deficit at present. hospital course Dizziness likely secondary to status migranosus seen by neurology patient started on Topamax 25 mg at night for migraine prophylaxis, patient given sumatriptan 50 mg and started on trazodone for sleep patient previously was taking venlafaxine that she recently stopped taking since patient's symptoms are improving and MRI brain showed no acute abnormality therefore patient is being discharged home Recently diagnosed with UTI finish course of antibiotic stop Macrobid Hypothyroidism Continue with levothyroxine Incidental thyroid nodule. Thyroid US done showed small thyroid, two TI-RADS category 3 nodules, 1.6 cm isthmus, and 1.0 cm right lobe radiology recommended follow-up as outpatient, recommend PCP for endocrinology follow-up Time Spent with Patient Time attestation: Total time spent providing and/or coordinating discharge services: Discharge coordination time: Greater than 30 minutes Physical Exam Vital Signs: Vital Signs: Last Vital Signs Temp 96.9 F 11/19/20 07:45 Pulse 81 11/19/20 07:45 Resp 16 11/19/20 12:00 BP 106/72 11/19/20 07:45 Pulse Ox 98 11/19/20 07:45 Body Mass Index 36.0 General patient resting comfortably in no acute distress. Neck is supple no JVD. CVS regular rate rhythm, Respiratory lungs clear to auscultation, no respiratory distress, no wheeze, no rhonchi. Gastrointestinal abdomen soft, nontender, bowel sounds audible, no guarding , no rigidity. Extremities no clubbing cyanosis or edema. Neuro nonfocal no nystagmus, steady gait , speech clear. Skin no rash DS: Data Data Completed and Pending Labs on day of discharge: Laboratory Tests 11/16/20 11/16/20 11/16/20 12:09 12:09 12:09 WBC 3.6 L RBC 4.76 Hgb 14.8 Hct 44.5 MCV 93.5 MCH 31.1 MCHC 33.3 RDW 12.1 Plt Count 189 MPV 10.1 Immature Gran % (Auto) 0.6 H Neut % (Auto) 44.6 L Lymph % (Auto) 39.6 Hanson % (Auto) 11.0 Eos % (Auto) 2.5 Baso % (Auto) 1.7 Lymph # (Auto) 1.4 Hanson # (Auto) 0.4 Eos # (Auto) 0.1 Baso # (Auto) 0.1 Abs Immat Gran (auto) 0.02 Absolute Neuts (auto) 1.6 L Absolute Nucleated RBC 0.000 Nucleated RBC % (auto) 0.0 ESR PT INR APTT Sodium Potassium Chloride Carbon Dioxide Anion Gap BUN Creatinine Estim Creat Clear Calc Estimated GFR Random Glucose Lactic Acid 0.8 Calcium Magnesium 2.2 Ferritin 220 Total Bilirubin 0.8 Direct Bilirubin 0.3 AST 12 ALT 11 Alkaline Phosphatase 53 Lactate Dehydrogenase Total Creatine Kinase 51 Troponin I High Sens Total Protein 6.3 L Albumin 4.0 Lipase 22 TSH Urine Color Urine Appearance Urine pH Ur Specific [place] Urine Protein Urine Glucose (UA) Urine Ketones Urine Blood Urine Nitrite Ur Leukocyte Esterase Urine RBC Urine WBC Ur Squamous Epith Cells Urine Bacteria Urine Mucus Coronavirus (PCR) Influenza Type A (PCR) Influenza Type B (PCR) RSV RNA Qual (PCR) 11/16/20 11/16/20 11/16/20 12:09 12:09 12:09 WBC RBC Hgb Hct MCV MCH MCHC RDW Plt Count MPV Immature Gran % (Auto) Neut % (Auto) Lymph % (Auto) Hanson % (Auto) Eos % (Auto) Baso % (Auto) Lymph # (Auto) Hanson # (Auto) Eos # (Auto) Baso # (Auto) Abs Immat Gran (auto) Absolute Neuts (auto) Absolute Nucleated RBC Nucleated RBC % (auto) ESR PT 12.9 INR 1.1 APTT 35.1 Sodium Potassium Chloride Carbon Dioxide Anion Gap BUN Creatinine Estim Creat Clear Calc Estimated GFR Random Glucose Lactic Acid Calcium Magnesium Ferritin Total Bilirubin Direct Bilirubin AST ALT Alkaline Phosphatase Lactate Dehydrogenase Total Creatine Kinase Troponin I High Sens < 3.5 Total Protein Albumin Lipase TSH Urine Color Urine Appearance Urine pH Ur Specific [place] Urine Protein Urine Glucose (UA) Urine Ketones Urine Blood Urine Nitrite Ur Leukocyte Esterase Urine RBC Urine WBC Ur Squamous Epith Cells Urine Bacteria Urine Mucus Coronavirus (PCR) NEGATIVE Influenza Type A (PCR) NEGATIVE Influenza Type B (PCR) NEGATIVE RSV RNA Qual (PCR) NEGATIVE 11/16/20 11/16/20 11/17/20 12:10 18:42 06:31 WBC 3.3 L RBC 4.32 Hgb 13.5 Hct 40.7 MCV 94.2 MCH 31.3 MCHC 33.2 RDW 12.1 Plt Count 167 MPV 10.0 Immature Gran % (Auto) 0.0 Neut % (Auto) 36.6 L Lymph % (Auto) 47.4 H Hanson % (Auto) 11.2 H Eos % (Auto) 3.0 Baso % (Auto) 1.8 Lymph # (Auto) 1.6 Hanson # (Auto) 0.4 Eos # (Auto) 0.1 Baso # (Auto) 0.1 Abs Immat Gran (auto) 0.00 Absolute Neuts (auto) 1.2 L Absolute Nucleated RBC 0.000 Nucleated RBC % (auto) 0.0 ESR PT INR APTT Sodium 139 Potassium 4.1 Chloride 105 Carbon Dioxide 25 Anion Gap 13 BUN 24 H Creatinine 0.93 Estim Creat Clear Calc 81.9 Estimated GFR > 60 Random Glucose 85 Lactic Acid Calcium 9.0 Magnesium Ferritin Total Bilirubin Direct Bilirubin AST ALT Alkaline Phosphatase Lactate Dehydrogenase 142 Total Creatine Kinase Troponin I High Sens Total Protein Albumin Lipase TSH Urine Color YELLOW Urine Appearance CLEAR Urine pH 5.5 Ur Specific [place] 1.010 Urine Protein NEG Urine Glucose (UA) NEG Urine Ketones NEG Urine Blood TRACE Urine Nitrite NEG Ur Leukocyte Esterase NEG Urine RBC 0-2 Urine WBC 0-2 Ur Squamous Epith Cells TRACE Urine Bacteria 1+ Urine Mucus 1+ Coronavirus (PCR) Influenza Type A (PCR) Influenza Type B (PCR) RSV RNA Qual (PCR) 11/17/20 11/17/20 06:32 15:48 WBC RBC Hgb Hct MCV MCH MCHC RDW Plt Count MPV Immature Gran % (Auto) Neut % (Auto) Lymph % (Auto) Hanson % (Auto) Eos % (Auto) Baso % (Auto) Lymph # (Auto) Hanson # (Auto) Eos # (Auto) Baso # (Auto) Abs Immat Gran (auto) Absolute Neuts (auto) Absolute Nucleated RBC Nucleated RBC % (auto) ESR 7 PT INR APTT Sodium 138 Potassium 4.4 Chloride 111 H Carbon Dioxide 19 L Anion Gap 12 BUN 14 Creatinine 0.75 Estim Creat Clear Calc 101.6 Estimated GFR > 60 Random Glucose 81 Lactic Acid Calcium 8.1 L D Magnesium Ferritin Total Bilirubin Direct Bilirubin AST ALT Alkaline Phosphatase Lactate Dehydrogenase Total Creatine Kinase Troponin I High Sens Total Protein Albumin Lipase TSH 2.55 Urine Color Urine Appearance Urine pH Ur Specific [place] Urine Protein Urine Glucose (UA) Urine Ketones Urine Blood Urine Nitrite Ur Leukocyte Esterase Urine RBC Urine WBC Ur Squamous Epith Cells Urine Bacteria Urine Mucus Coronavirus (PCR) Influenza Type A (PCR) Influenza Type B (PCR) RSV RNA Qual (PCR) Preliminary micro results at discharge 11/16/20 12:54 Blood Culture - Preliminary Blood - Arterial No growth after 48 hours. 11/16/20 12:09 Blood Culture - Preliminary Blood - Arterial No growth after 48 hours. Discharge Plan Discharge Patient Disposition: Home, Self-Care Referrals: Denise Zimmer MD [Primary Care Provider] - Discharge Medications: New trazodone 50 mg Tablet 50 mg PO BEDTIME PRN (Reason: Insomnia) Qty: 30 RF: 0 sumatriptan succinate 50 mg Tablet 50 mg PO DAILY PRN (Reason: Headache) Qty: 20 RF: 0 topiramate 25 mg Tablet 25 mg PO BEDTIME Qty: 30 RF: 0 Continued levothyroxine [Synthroid] 125 mcg tablet 1 tab PO DAILY RF: 0 pqrgrjfrub-pyvsltkzsyctx-douo 50-300-40 mg capsule 1 cap PO Q4H PRN (Reason: Pain) RF: 0 Discontinued nitrofurantoin monohyd/m-cryst 100 mg capsule 1 cap PO BID RF: 0 Discharge Orders: Discharge Order (Routine); Ordered 11/19/20 Ordered By: Tre Tobias Diet: advance to usual diet Activity on Discharge: As tolerated Stand Alone Forms: Patient Portal Discharge page, Work/School Release Care Plan Goals: Take Imitrex for acute headache, Topamax for prevention of headache and trazodone 50 mg take half tablet (25mg)for insomnia Health Concerns: Headache and dizziness Plan of Treatment: Outpatient follow-up primary care physician in [address] Goff in 2-3 weeks Discharge Date/Time: 11/19/20 15:29
== END 2020-11-19 15:29 | disposition home or self-care (01) ==
LOC: HO.ED 20:40 → HO.EDOVER 22:16 → HO.S3 11-17 20:15
PROVIDERS: Emergency Medicine; Psychiatry & Neurology Neurology; Admitting Provider Internal Medicine; Emergency Provider Emergency Medicine; PCP Internal Medicine; Visit Provider Hospitalist
DX: R42 Dizziness and giddiness (principal); G43.901 Migraine, unspecified, not intractable, with status migrainosus; E03.9 Hypothyroidism, unspecified; F41.8 Other specified anxiety disorders; N39.0 Urinary tract infection, site not specified; D72.819 Decreased white blood cell count, unspecified; Z20.822 Contact with and (suspected) exposure to COVID-19; Z87.891 Personal history of nicotine dependence; Z79.899 Other long term (current) drug therapy
CPT/HCPCS: 0241U; 36415; 70450; 70496; 70498; 70551; 71045; 76536; 80048; 80076; 81001; 82550; 82728; 83605; 83615; 83690; 83735; 84443; 84484; 85025; 85610; 85652; 85730; 87040; 93005; 96361; 96372; 96374; 96375; 96376; 99218; 99285; J1200; J1650; J2060; J2270; J2405; Q9967

== ENCOUNTER 2025-01-13 14:56 | Outpatient (REF) | payer BC, SELFPAY ==
[2025-01-13 19:01] LABS: Anion Gap 13 (12-20); Blood Urea Nitrogen 21 mg/dL (9-16); Calcium 9.8 mg/dL (8.4-10.2); Carbon Dioxide 26 mmol/L (22-29); Chloride 107 mmol/L (96-108); Estimated Glomerular Filt Rate > 60; Glucose Random 85 mg/dL (60-115); Potassium 3.9 mmol/L (3.3-5.1); Sodium 142 mmol/L (135-145)
== END 2025-01-13 14:57 | disposition home or self-care (01) ==
LOC: HO.WFDLDS 14:56
PROVIDERS: Visit Provider Internal Medicine
DX: E87.8 Other disorders of electrolyte and fluid balance, not elsewhere classified (principal); R79.89 Other specified abnormal findings of blood chemistry
CPT/HCPCS: 36415; 80048; 81256

== ENCOUNTER 2025-05-05 09:27 | Outpatient (REF) | payer BC, SELFPAY ==
--- OUTSIDE RECORDS SUMMARY | 2025-04-30 23:59 | XMS_ITS | Continuity of Care Document ---
Author Organization [facility] Address [address] [place] [address], [address] [place] [address]- Care Team Providers Care Chemical Engineering Intern Name Role Phone Mesha CASTILLO, Denise Caba Primary Care Physician [phone] [id number] Date[facility]s): 03/31/25 - 04/30/25 [facility] [address], [address] [place], [place] [address] Attending Physician: Justus Savage Admitting Physician: AdmtrJustus Referring Physician: AdmtrJustus Encounter Type: Triage Allergies, Adverse Reactions, Alerts Substance Criticality Severity Reaction Reaction Severity Status fexofenadine Confusion Active Immunizations Given and Recorded Vaccine Date Status Refusal Reason hepatitis B adult vaccine 01/13/25 Given influenza virus vaccine, inactivated 12/21/24 Give n influenza virus vaccine, inactivated 07/23/23 Give n influenza virus vaccine, inactivated 09/07/18 Yoni rded influenza virus vaccine, inactivated 09/05/11 Yoni rded SARS-CoV-2 (COVID-19) mRNA-1273 vaccine 03/08/21 R ecorded SARS-CoV-2 (COVID-19) mRNA-1273 vaccine 02/08/21 R ecorded Influenza Virus Vaccine (oldterm) 09/03/20 Recorde d tetanus/diphtheria/pertussis, acel(Tdap) 04/15/19 Given tetanus/diphtheria/pertussis, acel(Tdap) 10/10/14 Recorded Medications Aerochamber w/Mask (Large) See Instructions, # 1 kit, Maintenance, use with aerochamber, 10/22/22 2:09:00 PM EST, please mask topatient face, Supply, 166.2, cm, 10/22/22 13:45:00 EST, Height Start Date: 10/22/22 Status: Ordered Quantity: 1.0 Unit: kit Repeat number: 1 Indications: Cough, unspecified; Contact with and (suspected) exposure to other viral communicable diseases; Contact with and (suspected) exposure to other viral communicable diseases; Albuterol (Eqv-ProAir HFA) 90 mcg/inh inhalation aerosol 2 inhalation = 180 mcg, Inhalation, Every 6 hours, PRN Wheezing/Shortness of Breath, # 8.5 Gm, 2 Refills, Maintenance, 01/22/25 10:55:00 AM EDT, Aerosol, [id number], Partial fill upon patient request if the prescription is for a schedule II opioid drug., 2 inhalation Inhalation Every 6 hours,P RN:Wheezing/Shortness of Breath, 169, cm, 01/22/25 10:42:00 EDT, Height, 106, kg, 10/25/24 10:15:00EST, Dry Weight Start Date: 01/22/25 Status: Ordered Quantity: 8.5 Unit: g Repeat number: 3 atorvastatin 10 mg oral tablet 1 tablet = 10 mg, By Mouth, Daily, # 90 tablet, 1 Refills, Maintenance, 01/13/25 2:27:00 PM EDT, [id number], Partial fill upon patient request if the prescription is for a schedule II opioid drug., 169, cm, 01/13/25 13:35:00 EDT, Height, 106, kg, 10/25/24 10:15:00 EST, Dry Weight Start Date: 01/13/25 Status: Ordered Quantity: 90.0 Unit: tablet Repeat number: 2 benzonatate 200 mg oral capsule 1 capsule = 200 mg, By Mouth, 3 times a day, prn cough, # 40 capsule, 0 Refills, Maintenance, 01/18/25 4:23:00 PM EDT, Capsule, [id number], Partial fill upon patient request if the prescriptionis for a schedule II opioid drug., 169, cm, 01/13/25 13:35:00 EDT, Height, 106, kg, 10/25/24 10:15:00 EST, Dry Weight Start Date: 01/18/25 Status: Ordered Quantity: 40.0 Unit: capsule Repeat number: 1 citalopram 10 mg oral tablet 10 mg, 1, tablet, By Mouth, Daily, # 90 tablet, Refills 1, Tot. Refills 1, Maintenance, 01/13/25 2:28:00 PM EDT, Route to Pharmacy Electronically, [facility] #[id number], Partial fill upon patient requestif the prescription is for a schedule II opioid drug., 169, cm, 01/13/25 13:35:00 EDT, Height, 106,kg, 10/25/24 10:15:00 EST, Dry Weight Start Date: 01/13/25 Status: Ordered Quantity: 90.0 Unit: tablet Repeat number: 2 clonazePAM 1 mg oral tablet 1 tablet = 1 mg, By Mouth, Daily at bedtime, PRN Anxiety, # 30 tablet, 1 Refills, Maintenance, 12/02/24 2:44:00 PM EST, Tablet, [facility]pharm[facility] #[id number], 169, cm, 10/25/24 10:15:00 EST, Height, 106, kg, 10/25/24 10:15:00 EST, Dry Weight Start Date: 12/02/24 Status: Ordered Quantity: 30.0 Unit: tablet Repeat number: 2 codeine-guaifenesin 10 mg-100 mg/5 mL oral syrup 5 mL, By Mouth, Daily at bedtime, PRN for cough and congestion, # 180 mL, 0 Refills, Maintenance, 01/22/25 10:54:00 AM EDT, Syrup, [facility]/pharmacy #[id number], Partial fill upon patient request if the prescription is for a schedule II opioid drug., 5 mL By Mouth Daily at bedtime,PRN:for cough and congestion, 169, cm, 01/22/25 10:42:00 EDT, Height, 106, kg, 10/25/24 10:15:00 EST, Dry Weight Start Date: 01/22/25 Status: Ordered Quantity: 180.0 Unit: mL Repeat number: 1 Estradiol Patch 0.05 mg/24 hours twice weekly transdermal film, extended release 0 Refills, Maintenance, 12/21/24 11:44:00 AM EST, Partial fill upon patient request if the prescription is for a schedule II opioid drug. Start Date: 12/21/24 Status: Ordered Repeat number: 1 fluticasone 50 mcg/inh nasal spray 1 sprays, Nares, Both, 2 times a day, # 16 Gm, 0 Refills, Maintenance, 09/16/23 5:43:00 PM EST, [place], [facility]/pharmacy #[id number], Partial fill upon patient request if the prescription is for a schedule II opioid drug., 1 sprays Nares, Both 2 times a day, 165.5, cm, 07/23/23 15:03:00 EDT, Height, 105, kg, 10/29/22 4:08:00 EST, Dry Weight Start Date: 09/16/23 Status: Ordered Quantity: 16.0 Unit: g Repeat number: 1 Indications: Other specified disorders of nose and nasal sinuses; levothyroxine 125 mcg (0.125 mg) oral tablet 1 tablet, By Mouth, Daily, # 90 tablet, 1 Refills, Maintenance, 01/14/25 3:33:00 PM EDT, [facility]/pharmacy #[id number], 169, cm, 01/13/25 13:35:00 EDT, Height, 106, kg, 10/25/24 10:15:00 EST, Dry Weight Start Date: 01/14/25 Status: Ordered Quantity: 90.0 Unit: tablet Repeat number: 2 ProAir HFA 90 mcg/inh inhalation aerosol with adapter 2, puffs, Inhalation, 4 times a day, PRN, # 18 Gm, Refills 0, Tot. Refills 0, Maintenance, 10/22/22 2:09:00 PM EST, Route to Pharmacy Electronically, [id number], [facility]/pharmacy #[id number], 166.2, cm, 10/22/22 13:45:00 EST, Height Start Date: 10/22/22 Status: Ordered Quantity: 18.0 Unit: g Repeat number: 1 Indications: Cough, unspecified; Contact with and (suspected) exposure to other viral communicable diseases; Contact with and (suspected) exposure to other viral communicable diseases; SUMAtriptan 50 mg oral tablet 1 tablet = 50 mg, By Mouth, Daily, PRN for migraine headache, may repeat dose after 2 hours up to amaximum of 2, # 18 tablet, 0 Refills, Maintenance, 11/20/20 11:40:00 AM EST, Tablet, Partial fill upon patient request if the prescription is for a schedule II opioid drug. Start Date: 11/20/20 Status: Ordered Quantity: 18.0 Unit: tablet Repeat number: 1 Vitamin D3 50,000 intl units oral capsule 1 capsule = 1,250 mcg, By Mouth, Every week, # 12 capsule, 0 Refills, Maintenance, 01/14/25 3:42:00 PM EDT, Capsule, [id number], Partial fill upon patient request if the prescription is for a schedule II opioid drug., 169, cm, 01/13/25 13:35:00 EDT, Height, 106, kg, 10/25/24 10:15:00 EST, Dry Weight Start Date: 01/14/25 Status: Ordered Quantity: 12.0 Unit: capsule Repeat number: 1 Problem List Condition Confirmation Course Effective Dates Status Health Status Informant Encounter for completion of form with patient Confirmed Active Allergic rhinitis Confirmed Active Anxiety Confirmed Active Benign paroxysmal positional vertigo Confirmed Active COVID-19 long hauler manifesting chronic dyspnea Confirmed Active Closed fracture of ankle Confirmed Active B12 deficiency Confirmed Active Cough Confirmed Active Vaccine counseling Confirmed Active Postmenopausal symptoms Confirmed Active Electrolyte abnormality Confirmed Active Shoulder tendinitis Confirmed Active Family history of Parkinson's disease Confirmed Active Gastroparesis syndrome Confirmed Active History of concussion injury of brain Confirmed Active Hypercholesterolemia Confirmed Active Hypernatremia Confirmed Active Hypothyroidism Confirmed Active Mixed urge and stress incontinence Confirmed Active Insomnia Confirmed Active Leukopenia Confirmed Active Low back pain Confirmed Active Migraine Confirmed Active Multiple actinic keratoses Confirmed Active Panic attack Confirmed Active Healthcare maintenance Confirmed Active Well woman exam Confirmed Active Elevated ferritin level Confirmed Active MDD (major depressive disorder), recurrent episode, moderate Confirmed Active Restless legs Confirmed Active Severe obesity (BMI 35.0-39.9) with comorbidity Confirmed Active Thyroid nodule Confirmed Active Vitamin D deficiency Confirmed Active Social History Social History Type Response Smoking Status Former smoker, quit more than 30 days ago entered on: 10/25/22 Sex Female Sex Representation Female (finding) Patient Care team information Care Team Personnel Name: Denise Zimmer MD Position: S Physician - Primary Care Member Role: PCP Address: [address] [place] [address], [address] [place], [place] [address] Telecom: Care Team Related Persons Name: DIOR, DEFAULTED Name: CLAY MENDIOLA Name: QAMAR GARZA Insurance Providers Guarantor name: LARISSA MENDIOLA [facility] Plan Information #: 1 Payer: [employer] O Payer Identifier: SHAILESH Member Number: [id number] Group Number: [id number] Subscriber Identifier: [id number] Relationship to Subscriber: self Coverage Type: NA Coverage Verification Date: NA Telecom: Address:
--- OUTSIDE RECORDS SUMMARY | 2025-05-05 09:47 | XMS_ITS | Data Portability ---
Author Organization [employer] in Office Address [address] [place] [address] Assessment Encounter Date Assessment Date Assessment LastModified by Organization Details LastModified Time 12/03/2024 12/03/2024 I spent 30 minutes of [id number] counselling and care coordination time with the patient. This includes reviewing medical records (medical, surgical, family and social history); updating medication and allergy information in the electronic health record; and ordering labs, medications, and education materials to continue patient care. [email or web address] Not available 12/03/2024 14:14:19 12/31/2024 12/31/2024 I spent minutes of [id number] counselling and care coordination time with the patient. This includes reviewing medical records (medical, surgical, family and social history); updating medication and allergy information in the electronic health record; and ordering labs, medications, and education materials to continue patient care. Not available 12/31/2024 16:32:40 Plan of Treatment Reminders Order Date Submit Date Provider Last Modified By Organization Details Last Modified Time Details Appointments [id number] 2024 02:45P Rosales GENAOS, NON EMERGENCY SERVICES AMBULANCE DRIVER Not available Not available Not available Lab None recorded. Referral None recorded. Procedures None recorded. Surgeries None recorded. Imaging None recorded. Medication Orders estradiol 0.05 mg/24 hr semiweekl y transderm al patch 2024 025 [facility]/Pharmacy #[id number], [address] [place] [address], [id number], 12/31/2024 16:34:35 Prometriu m 100 mg capsule 2024 025 [id number] [address] [place], [address], 12/31/2024 16:34:35 estradiol 0.05 mg/24 hr semiweekl y transderm al patch 2024 025 [facility]/Pharmacy #[id number], [address] [facility], [place], [address], 12/03/2024 14:11:25 Prometriu m 100 mg capsule 2024 025 [id number] [address] [facility], [place], [address], 12/03/2024 14:11:24 Patient TargetsNo targets recorded. Patient Instructions Encounter Date Encounter Id Patient Instructions Last Modified By Organization Details Last Modified Time 12/03/2024 [id number] Any requested follow-up visits are listed below in the Plan of Care section. Go directly to the [employer] space scheduler at [email or web address] to book a time. [email or web address] Not available 12/02/2024 14:15:38 It was a pleasur e to meet you and begin to collaborate on your care! Looking forward to seeing you again soon - and please do not hesitate to reach out with any questions. We focused on these items today: MEDICATION Please see changes to your medication plan below -Start estradiol patch 0.05 mg twice weekly -Start progesterone 100 mg nightly RESOURCES Here is some more information about what we discussed: Estradiol transdermal patch (Vivelle Dot): -Helpful for hot flashes, night sweats, and symptoms of perimenopause/menopau se. -Twice weekly transdermal patch. -Get it from your pharmacy. Application notes: -Peel off the backing from the patch and apply to a clean, dry area of your body, usually lower abdomen or upper buttock. Press the patch firmly in place for 10 seconds. Do not apply the patch on your breast or on oily, broken, or irritated skin. Replace your patch twice a week, and be as consistent as possible with the days you choose to change it. If the patch is not sticking or it causes irritation, try dusting your skin with a small amount of cornstarch before applying. Side effects: -While the HRT is safe for most users, some may experience side effects, including: nausea, breast tenderness, bloating, spotting, and mild mood changes. Estrogen in some forms increases the risk of a blood clot in the leg (deep vein thrombosis) or lung (pulmonary embolism). While blood clots are rare, contact your health care provider or go to the emergency room if you develop shortness of breath, coughing or chest pain, leg or calf pain, or redness or swelling. Oral micronized progesterone (Prometrium) Continuous: -We prescribe progesterone to protect women with a uterus while taking estrogen. It may be prescribed for some individuals to help with sleep. -Remember to take this medication orally daily before bed, because it may make you drowsy. That is normal and common, and could bring the added benefit of better sleep. -Get it from your pharmacy. -Contraindications to this formulation: Peanut allergies as in peanut oil. -Concerning symptoms that would require immediate visit with PCP or urgent care: Severe mood changes. -Non-concerning side effects that are likely to resolve: cramping, bloating and mild moodiness. These are likely to ease within three months. Today we reviewed options for treating common symptoms of menopause. These options include hormonal medications, non hormonal medications, integrative therapies and lifestyle modifications. Menopause symptoms vary from woman to woman. Some women get no symptoms, but others have many. Intensity and duration also vary and can last on average 5-10 years. HRT may help with many menopausal symptoms. It is FDA approved for the treatment of hot flashes, vaginal symptoms, osteoporosis, and for those in early or premature menopause. HRT is associated with relief of symptoms and improvement in bone health. When started close to the age of menopause, HRT reduces cardiovascular risk and has potential benefits for cognitive health. Here are the latest recommendations from the Menopause Society: https://menopause.org /patient-education/me nopause-topics/hormon e-therapy Hormone therapy most often involves the combination of estrogen and progestogen. As with any drug there are some potential risks associated with hormone therapy. There are concerns of associated health risks with HRT including risks related to breast cancer, uterine cancer, gallbladder disease, and dementia. Many of these concerns are related to older types of hormones that are no longer recommended today and some of these concerns differ depending on the component of hormones (i.e., estrogen vs progestogen) and the mode of delivery. Some studies have suggested that some types of HRT may increase the risk of heart attack, stroke, and blood clots. If you develop chest pain, difficulty breathing, or symptoms suggestive of a stroke please seek care immediately. Today we reviewed your personal history including specific risks and benefits of hormone therapy for you. Based on this shared decision making, we recommend HRT to you as a reasonable and helpful therapy. If you have additional questions related to health risks associated with HRT, please discuss with your clinician. Please know that HRT requires fine-tuning and an individualized approach. We ll plan to adjust your therapy if needed to address your symptoms. We will meet in 4-6 weeks to check in about your new regimen. Please reach out if you need to meet sooner. [email or web address] Not available 12/03/2024 14:10:20 12/31/2024 [id number] Any requested follow-up visits are listed below in the Plan of Care section. Go directly to the [employer] space scheduler at [email or web address] to book a time. Not available 12/31/2024 16:12:30 Reason for Referral None Reported. Problems Name Problem SNOMED Code Status Onset Date Resolution Date Notes Provider Name and Address Organization Details Recorded Time Depressed mood 819389853 Active 025 [place] [address] [place], [address], [facility] 5 13:57:00 Menopausal flushing 044829487 Active 025 [place] [address] [place], [address], [facility] [employer] [facility] 5 16:33:52 Problem Notes None recorded. Procedures Surgical History Date Name Laterality Status Provider Name and Address Organization Details Recorded Time 4 Date of Last [place] [address] [place], [address], [facility] [employer] [facility] 12/03/2024 13:50:59 3 Date of Last [place] [address] [place], [address], [facility] 12/03/2024 13:50:59 4 destruction of lesion of uterus completed BAIRON COLEYJOHN [address] [place], [address], [facility] 12/03/2024 13:52:00 4 ligation [place] [address] [place], [address], [facility] 12/03/2024 13:51:43 Imaging Results None recorded. Procedure Notes None recorded. Medical Equipment None Reported. Allergies Allergen ID Allergen Name Allergen Category Reaction Reaction Severity Criticality Documentation Date Start Date Code Code System Note Provider Name and Address Organization Details Recorded Time 670699 fexofenad ine medicatio n Not available Not available Not available 12/31/2024 54136 RxNorm Not Available [place] - External Data Service - prod 03:49:52 Medications Name Sig Start Date Stop Date Status Note LastModified by Organization Details LastModified Time atorvastatin 10 mg tablet TAKE 1 TABLET BY MOUTH EVERY DAY active Not Available Not Available No t Available benzonatate 200 mg capsule TAKE 1 CAPSULE BY MOUTH 3 TIMES A DAY NEEDED FOR COUGH active Not Available Not Available No t Available citalopram 10 mg tablet TAKE 1 TABLET BY MOUTH EVERY DAY active Not Available Not Available No t Available ketotifen 0.025 % (0.035 %) eye drops PLACE 1 DROP IN EACH EYE EVERY 8 HOURS NEEDED FOR ITCH active Not Available Not Available No t Available clonazepam 1 mg tablet TAKE 1 TABLET BY MOUTH AT BEDTIME NEEDED FOR ANXIETY active Not Available Not Available No t Available estradiol 0.05 mg/24 hr semiweekly transdermal patch APPLY 1 PATCH TRANSDERMAL LY TWICE A WEEK active Not Available Not Available No t Available Synthroid 175 mcg tablet active Not Available Not Available Not Available levothyroxin e 125 mcg tablet TAKE 1 TABLET BY MOUTH EVERY DAY active Not Available Not Available No t Available codeine 10 mg-guaifenes in 100 mg/5 mL oral liquid TAKE 5 ML BY MOUTH DAILY AT BEDTIME NEEDED FOR COUGH AND CONGESTION active Not Available Not Available N ot Available albuterol sulfate HFA 90 mcg/actuatio n aerosol inhaler INHALE 2 PUFFS EVERY 6 HOURS NEEDED FOR WHEEZING/SH ORTNESS OF BREATH active Not Available Not Available No t Available progesterone micronized 100 mg capsule TAKE 1 CAPSULE BY MOUTH EVERY DAY AT BEDTIME FOR 30 DAYS active Not Available Not Available No t Available clonazepam 1 mg as needed active Not Available Not Available No t Available cholecalcife rol (vitamin D3) 1,250 mcg (50,000 unit) capsule TAKE 1 CAPSULE BY MOUTH EVERY WEEK active Not Available Not Available No t Available Vitals Date Recorded Body height Body mass index (BMI) Body weight Provider Name and Address Organization Details Last Updated DateTime 12/03/2024 165.1 cm 38.1 kg/m2 268332.[place] [address] [address] [place], [place], , [employer] 12/02/2024 14:17:47 Social History Question Answer Notes LastModified by Organizat ion Details LastModified Time Tobacco Smoking [place] [address] [address] [place], , [employer] 12/02/2024 14:16:32 When Did You Quit Smoking? 16+yearssinc elastcigaret te Information not available 12/02/2024 How Many Years Have You Smoked Tobacco? 16 Information not available 12/02/2024 Sex: Female Functional Status Question Answer Note LastModified by Organization D etails LastModified Time What is your level of alcohol consumption? None Information not available 12/02/2024 Mental Status None recorded. Family History Relationship Description Onset Age of this Age Resolved Age Notes LastModified by Organization Details LastModified Time Father Ischemic stroke [email or web address] Not available 2024 13:51:02 Medical History Condition Response Anxiety Disorder Y Headaches Y Thyroid Problems Y Depression/ depression Y Gynecological History Statement/Question Response Date of Last Pap Smear 05/03/2023 Date of Last Colonoscopy 08/10 Date of Last Mammogram 11/26/2023 Approximate Date of LMP Hormone Replacement Therapy No Obstetrics History GPAL:G 0 P 0 0 0 0 Past Encounters Encounter ID Performer Location Encounter Start Date Encounter Closed Date Diagnosis/Indication Diagnosis SNOMED-CT Code Diagnosis ICD10 Code Diagnosis Note [id number] BAIRON COLEY NP Main Office [address] [place] [address] 12/03/2024 13:03:25 12/04/2024 04:10:35 Perimenopausal state [id number] 16958 Z78.0 54 yo female with hot flashes, night sweats, weight gain. Interested in HRT but is also very nervous. Long discussion of risks/bene fits, will start HRT today and f/u in one month. The patient is experienci ng significan t symptoms related to hormonal changes that impact their quality of life and ability to function profession ally and/or personally . We reviewed lifestyle modificati ons, integrativ e therapies, hormonal options as well as other medication s used to treat common menopausal symptoms. Pt was informed that, as with any drug, there are some potential risks associated with HRT. We discussed that some types of HRT may increase the risk of heart attack, stroke, and blood clots. Patient is counseled on concerning signs and symptoms and instructed to immediatel y seek care if these develop. We discussed potential health risks that may be associated with HRT including risks related to breast cancer, uterine cancer, gallbladde r disease, dementia and others. Many of these concerns are related to older types of hormones that are no longer recommende d today and some of these concerns differ depending on the component of hormones (estrogen vs progestero ne) and the mode of delivery. After review of the potential benefits of HRT, the alternativ es and the risks of therapy this patient prefers a trial of HRT. Based on this shared decision making HRT therapy will be offered. Depressed mood [id number] F32.A Pt with history of depression and trauma. Not on antidepres sants currently. Will monitor response to HRT, discussed it should help but if mood worsens seek emergency care. [id number] CECELIA CHUNG NP Main Office [address] [place] [address] 12/31/2024 15:33:14 01/01/2025 04:10:13 Menopausal flushing [id number] N95.1 - Patient was started on 0.05 mg estradiol patch and 100 mg Prometrium capsules.- Reports significan t improvemen t in hot flashes, with symptoms now well-contr olled.- No reported side effects from the current HRT regimen.- Advised to continue current HRT regimen without changes due to positive response.- Educated patient on the potential for breakthrou gh symptoms and the need to return for dose adjustment if symptoms recur.- Follow-up appointvaldemar bedoya scheduled for April 01 at 3:00 PM. Health Concerns Section Related Observation LastModified by Organization Detai ls LastModified Time None Recorded Concern Status LastModified by Organization Details LastModified Time None Recorded Advance Directives Directive None Recorded Payers Insurance Date Sequence Insurance Name Policy Number Policy Ni Covered Member ID Ni Member ID Guarantor Name 04/01/2025 1 URBANO (PPO) [id number] Nguyen Nanda Rodriguez [id number] Michael Notes Date Note Type Note Provider Name and Address Organization Details Recorded Time 5 text/html Virtual Visit AttestationModality: VideoProvider Location: Home Patient Location: Home Patient State: [place] 54 yo female here today to discuss menopausal symptoms. Her friend is on HRT and is feeling much better, she has never wanted to start HRT because of cancer fears. Last spring VMS started, then went away, then a month ago night sweats and hot flashes returned. Hot flashes are daily. Taking amberdan OTC, helping somewhat but she's only supposed to take for 90 days. Not sleeping well, waking up 3-4 times with night sweats. Feeling very tired during the day. Has been struggling with depression for 10 years, stopped taking antidepressants recently because she was concerned about side effects. Has some brain fog related to mood. No thoughts of self harm, has therapist. Has a hx of trauma, therapist says this is related to mood and brain fog but she also feels it is worse with perimenopause. Weight gain - she had lost weight and then gained it back. She is working on losing it currently with weight watchers. Notices it more in her midsection. Not interested in weight loss medications. [place] [address], [place], [address], [facility] 12/03/2024 14:14:38 5 text/html Virtual Visit AttestationModality: VideoProvider Location: Home Patient Location: Home Patient State: Eddie is a 54 year old female presenting for a follow-up visit to discuss the effectiveness of her hormone replacement therapy (HRT) regimen, which includes a 0.05 estradiol patch and 100mg Prometrium capsules. She also mentions ongoing sleep issues and recent fatigue.Hormone Replacement Therapy:- Patient was started on a 0.05 estradiol patch and 100mg Prometrium capsules by [facility] during her last visit.- She notes that her hot flashes have been effectively managed with this regimen, and she is pleased with the results.- She denies experiencing any side effects from the HRT.Sleep Issues:- Patient reports ongoing sleep issues, which she describes as a long-standing problem.- She notes some improvement in her sleep since starting the HRT, but the issue has not been fully resolved.Fatigue:- Patient has been experiencing significant fatigue recently.- She has had some labs drawn by her primary care provider, with abnormalities noted in her ferritin level and thyroid function.- She is currently on Synthroid for her thyroid issue.- She has an upcoming appointment with her primary care provider to discuss these lab results and her fatigue.Follow-up and Monitoring:- Patient has a follow-up appointment scheduled in 3 months to monitor her response to the HRT.- She understands that she can schedule an earlier appointment if she experiences any breakthrough symptoms or has any concerns.PMHx:- HypothyroidismCurrent Meds:- Estradiol patch 0.05- Prometrium 100mg capsules- Synthroid CECELIA CHUNG, JOHN [address] [place], [address], [facility] 12/31/2024 16:34:51 OBGyn Episode No OBEpisode recorded.
[2025-05-05 11:31] LABS: Alanine Aminotransferase 19 U/L (0-31); Cholesterol 156 mg/dL (<200); HDL Cholesterol 51 mg/dL (>40)
[2025-05-11 13:37] LABS: Lipoprotein Asso Phospholip A2 77 (<124)
== END 2025-05-05 09:28 | disposition home or self-care (01) ==
LOC: HO.WFDLDS 09:27
PROVIDERS: Visit Provider Internal Medicine
DX: Z71.85 Encounter for immunization safety counseling (principal); E55.9 Vitamin D deficiency, unspecified; E78.00 Pure hypercholesterolemia, unspecified; E87.8 Other disorders of electrolyte and fluid balance, not elsewhere classified; R79.89 Other specified abnormal findings of blood chemistry
CPT/HCPCS: 36415; 82172; 82306; 82465; 83698; 83718; 83721; 84460